=== PATIENT | male | born 1980 | race Caucasian/White ===

== ENCOUNTER 2017-10-09 03:23 | Emergency (ER) | payer BC ==
--- NOTE | 2017-10-09 03:42 | ER Document Report ---
ED General - General Chief Complaint: Breathing Difficulty Stated Complaint: BREATHING PROBLEM Time Seen by Provider: 10/09/17 03:28 Information source: Patient Notes: Patient is a 37-year-old male with a past medical history of cystic fibrosis who comes emergency department for chief complaint of cough with chest congestion and difficulty breathing for the past 4 days. Patient also states that prior to arrival he had an episode while he was walking to the bathroom where he felt very lightheaded and thought he was going to pass out, he sat on the couch and it subsided, his significant other had called EMS during this episode. He denies current lightheadedness. He denies chest pain or palpitations. Only current symptoms are cough and chest congestion with shortness of breath. He states he has had chills over the past couple of days. He takes azithromycin 3 times a week. He uses albuterol and used it tonight. He follows with [facility] Dr. Melissa Schaeffer. TRAVEL OUTSIDE OF THE [place] IN LAST 30 DAYS: No - Related Data Allergies/Adverse Reactions: No Known Allergies Allergy (Verified 10/09/17 03:37) Past Medical History - General Information source: Patient - Social History Smoking Status: Never Smoker Frequency of alcohol use: None Drug Abuse: None Lives with: Spouse/Significant other Family History: None Patient has suicidal ideation: No Patient has homicidal ideation: No Pulmonary Medical History: Reports: Hx Pneumonia, Other - cystic fibrosis Renal/ Medical History: Denies: Hx Peritoneal Dialysis - Immunizations Immunizations up to date: Yes Hx Diphtheria, Pertussis, Tetanus Vaccination: Yes Review of Systems - Review of Systems Constitutional: See HPI EENT: No symptoms reported Cardiovascular: No symptoms reported Respiratory: See HPI Gastrointestinal: No symptoms reported Genitourinary: No symptoms reported Male Genitourinary: No symptoms reported Musculoskeletal: No symptoms reported Skin: No symptoms reported Hematologic/Lymphatic: No symptoms reported Neurological/Psychological: No symptoms reported Physical Exam - Vital signs Vitals: Temp Pulse Resp BP Pulse Ox 98.5 F 117 H 24 H 121/69 96 10/09/17 03:29 10/09/17 03:29 10/09/17 03:29 10/09/17 03:29 10/09/17 03:29 Interpretation: Normal - General General appearance: Alert In distress: None - HEENT Head: Normocephalic, Atraumatic Eyes: Normal Pupils: PERRL - Respiratory Respiratory status: No respiratory distress, Tachypnea - Mild intermittent tachypnea. No: Respiratory distress Chest status: Nontender Breath sounds: Decreased air movement, Nonproductive cough, Other - A few coarse scattered rhonchi and wheezes, no rales - Cardiovascular Rhythm: Regular, Tachycardia Heart sounds: Normal auscultation, S1 appreciated, S2 appreciated Murmur: No - Abdominal Inspection: Normal Distension: No distension Bowel sounds: Normal Tenderness: Nontender Organomegaly: No organomegaly - Back Back: Normal, Nontender - Extremities General upper extremity: Normal inspection, Nontender, Normal color, Normal ROM , Normal temperature General lower extremity: Normal inspection, Nontender, Normal color, Normal ROM , Normal temperature, Normal weight bearing. No: Lynn's sign - Neurological Neuro grossly intact: Yes Cognition: Normal Orientation: AAOx4 Darin Coma Scale Eye Opening: Spontaneous Kenton Coma Scale Verbal: Oriented Kenton Coma Scale Motor: Obeys Commands Darin Coma Scale Total: 15 Speech: Normal Motor strength normal: LUE, RUE, LLE, RLE Sensory: Normal - Psychological Associated symptoms: Normal affect, Normal mood - Skin Skin Temperature: Warm Skin Moisture: Dry Skin Color: Normal Course - Re-evaluation Re-evalutation: Patient with mild tachypnea, tachycardia, a few scattered rhonchi and wheezes. Abnormal breath sounds resolved after DuoNeb's here and from EMS, Solu-Medrol given, giving IV fluids. Chest x-ray with no acute findings, CBC, chemistry generally unremarkable and at baseline, LFTs slightly elevated but comparable to prior. Urinalysis unremarkable. Venous blood gas with no concerning abnormalities. After 1.5 L of normal saline patient continues to be tachycardic in the 120s which is more than I would expect just from albuterol. Patient still complains of shortness of breath on 2 L nasal cannula. He states he has been sitting in bed for the past week. No personal history of blood clot although he does have family history of blood clots. Because of persistent tachycardia decision was made to perform CTA to rule out pulmonary emboli and further evaluate the patient. CTA showing mosaic groundglass opacity in the right upper lung, bronchiectasis, pulmonary fibrosis, but no PE. Patient ambulated briefly, his heart rate went up to almost 140s, he became very short of breath with tachypnea. Pulse oxygen went down to 94% but not below. Patient will require admission. Discussed with Dr. De Jesus. Recommends consultation with pulmonology for antibiotic choice and transfer to tertiary center. Discussed with Dr. Cai, however she is not available for accepting, she does recommend vancomycin, Zosyn, Levaquin doses based on patient's previous culture growth. Spoke with Dr. Rowley, Pulmonology. He will accept patient for transfer. 10/09/17 07:15 Patient is in full agreement with transfer plans. 10/09/17 07:30 Introduced at bedside to Jessica DE OLIVEIRA. - Vital Signs Vital signs: Temp Pulse Resp BP Pulse Ox 98.5 F 117 H 15 122/57 L 96 10/09/17 03:29 10/09/17 03:29 10/09/17 07:00 10/09/17 06:01 10/09/17 07:00 - Laboratory Result Diagrams: 10/09/17 04:09 10/09/17 04:09 Laboratory results interpreted by me: 10/09/17 10/09/17 10/09/17 04:09 04:09 04:09 Hgb 12.8 L Hct 37.8 L Lymphocytes % 6.6 L Monocytes % 13.2 H VBG pCO2 33.9 L Sodium 136.1 L AST 135 H ALT 195 H Alkaline Phosphatase 182 H Discharge - Discharge Clinical Impression: Cystic fibrosis, Difficulty breathing, Tachycardia Pneumonia Qualifiers: Pneumonia type: due to unspecified organism Laterality: right Lung location: upper lobe of lung Qualified Code(s): J18.1 - Lobar pneumonia, unspecified organism Condition: Stable Disposition: [facility]
[2017-10-09] MEDS ORDERED: NORMAL SALINE 1000 ML 500 ML IV ONE (03:54)
[2017-10-09] MEDS ORDERED: METHYLPREDNISOLONE INJ 125 MG/2 ML SDV IV ONE (03:54)
--- NOTE | 2017-10-09 04:08 | RADIOLOGY REPORT (SQ) ---
EXAM DESCRIPTION: CHEST SINGLE VIEW CLINICAL HISTORY: 37 years, Male, shortness of breath, cough, chills COMPARISON: None. FINDINGS: Normal lung volume, clear parenchyma, normal cardiac silhouette, and intact bony thorax. IMPRESSION: No acute cardiopulmonary findings.
[2017-10-09 04:18] LABS: ABSOLUTE EOSINOPHILS # (AUTO) 0.2 10^3/uL (0.0-0.6); ABSOLUTE LYMPHOCYTES (AUTO) 0.5 10^3/uL (0.5-4.7); ABSOLUTE NEUT (AUTO) 5.9 10^3/uL (1.7-8.2); BASOPHILS % (AUTO) 0.1 % (0-2); EOSINOPHILS % (AUTO) 3.1 % (0-6); HEMATOCRIT 37.8 % (37.9-51.0); HEMOGLOBIN 12.8 g/dL (13.5-17.0); LYMPHOCYTES % (AUTO) 6.6 % (13-45); MEAN CORPUSCULAR HEMOGLOBIN 29.2 pg (27.0-33.4); MEAN CORPUSCULAR HGB CONC 33.8 g/dL (32.0-36.0); MEAN CORPUSCULAR VOLUME 86 fl (80-97); MONOCYTES % (AUTO) 13.2 % (3-13); PLATELET COUNT 236 10^3/uL (150-450); RED BLOOD COUNT 4.37 10^6/uL (4.35-5.55); RED CELL DISTRIBUTION WIDTH 13.3 % (11.5-14.0); TOTAL CELLS COUNTED % (AUTO) 100 %; WHITE BLOOD COUNT 7.7 10^3/uL (4.0-10.5)
[2017-10-09 04:22] LABS: VENOUS BLOOD BASE EXCESS -2.8 mmol/L; VENOUS BLOOD PCO2 33.9 mmHg (35-63); VENOUS BLOOD PH 7.41 (7.30-7.42)
[2017-10-09 04:31] LABS: ALANINE AMINOTRANSFERASE 195 U/L (21-72); ALBUMIN 4.1 g/dL (3.5-5.0); ALKALINE PHOSPHATASE 182 U/L (38-126); ANION GAP 7 (5-19); ASPARTATE AMINO TRANSFERASE 135 U/L (17-59); BILIRUBIN,DIRECT 0.3 mg/dL (0.0-0.4); BILIRUBIN,TOTAL 0.7 mg/dL (0.2-1.3); BLOOD UREA NITROGEN 12 mg/dL (7-20); CALCIUM 9.2 mg/dL (8.4-10.2); CARBON DIOXIDE 24 mmol/L (22-30); CHLORIDE 105 mmol/L (98-107); GLUCOSE 93 mg/dL (75-110); POTASSIUM 4.3 mmol/L (3.6-5.0); SODIUM 136.1 mmol/L (137-145)
[2017-10-09] MEDS ORDERED: NORMAL SALINE 1000 ML 1,000 ML IV ONE (05:06)
[2017-10-09 05:58] LABS: APPEARANCE,URINE CLEAR; BILIRUBIN,URINE NEGATIVE (NEGATIVE); COLOR,URINE STRAW; GLUCOSE, URINE NEGATIVE (NEGATIVE); KETONES,URINE NEGATIVE (NEGATIVE); LEUKOCYTE ESTERASE,URINE NEGATIVE (NEGATIVE); NITRITE,URINE NEGATIVE (NEGATIVE); PROTEIN,URINE NEGATIVE (NEGATIVE); URINE SPECIFIC GRAVITY 1.005; UROBILINOGEN,URINE NEGATIVE mg/dL (<2.0)
--- NOTE | 2017-10-09 06:01 | RADIOLOGY REPORT (SQ) ---
EXAM DESCRIPTION: CTA CHEST CLINICAL HISTORY: 37 years Male, shortness of breath, tachycardia COMPARISON: None. TECHNIQUE: 76 mL Isovue 370 IV contrast. Multiplanar reformat. This exam was performed according to our departmental dose-optimization program, which includes automated exposure control, adjustment of the mA and/or kV according to patient size and/or use of iterative reconstruction technique. FINDINGS: No pulmonary embolus. No right ventricular strain. Mild pulmonary fibrosis includes moderate bronchiectasis bilaterally and small reticulonodular interstitial markings of the right middle and right upper lobes. Mosaic groundglass opacity includes the right upper lobe. 2.8 cm low-attenuation likely benign splenic cyst. Small cholelithiasis. Inferior neck, axillae, mediastinum, lymphatics, heart, vasculature, upper abdomen, and musculoskeleton appear otherwise unremarkable. IMPRESSION: 1. Moderate bilateral bronchiectasis, mild pulmonary fibrosis, and/or mild-moderate chronic interstitial lung disease. 2. No pulmonary embolus. 3. Small cholelithiasis.
[2017-10-09] MEDS ORDERED: IPRATROPIUM/ALBUTEROL 0.5-2.5 MG/3 ML AMPUL NEB ONE (06:31)
[2017-10-09] MEDS ORDERED: PIPERACILLIN/TAZOBACTAM 3.375 GM VIAL IV ONE (06:58)
[2017-10-09] MEDS ORDERED: VANCOMYCIN HCL INJ 1000 MG VIAL IV ONE (06:58)
[2017-10-09] MEDS ORDERED: LEVOFLOXACIN 750 MG/D5W RTU 750 MG/150 ML RTUPB IV ONE (06:58)
[2017-10-09 08:17] LABS: A TYPE INFLUENZA AG NEGATIVE (NEGATIVE); B INFLUENZA AG NEGATIVE (NEGATIVE)
[2017-10-09 09:19] VITALS: BP 124/71
--- NOTE | 2017-10-09 10:26 | EKG REPORT ---
SEVERITY:- OTHERWISE NORMAL ECG - SINUS TACHYCARDIA : Confirmed by: Danni Sparks 09-Oct-2017 10:25:26
== END 2017-10-09 10:05 | disposition short-term general hospital (02) ==
LOC: ER 03:23
DX: J18.1 Lobar pneumonia, unspecified organism (principal); E84.9 Cystic fibrosis, unspecified; R06.02 Shortness of breath; R00.0 Tachycardia, unspecified; R05 Cough; R09.89 Other specified symptoms and signs involving the circulatory and respiratory systems
CPT/HCPCS: 93005; 94640; 99285; 96361; 96375; 96365; 96367; 36415; 87040; 85025; 80053; 81001; 82803; 87804; 71045; 71275; 93010; J2930; J7030; J3370; J1956; J7620; J2543

== ENCOUNTER 2018-05-25 23:53 | Emergency (ER) | payer BC ==
[2018-05-26 01:16] LABS: HEMATOCRIT 42.7 % (37.9-51.0); HEMOGLOBIN 14.4 g/dL (13.5-17.0); MEAN CORPUSCULAR HEMOGLOBIN 29.4 pg (27.0-33.4); MEAN CORPUSCULAR HGB CONC 33.7 g/dL (32.0-36.0); MEAN CORPUSCULAR VOLUME 87 fl (80-97); PLATELET COUNT 442 10^3/uL (150-450); RED CELL DISTRIBUTION WIDTH 13.6 % (11.5-14.0); WHITE BLOOD COUNT 23.1 10^3/uL (4.0-10.5)
[2018-05-26 01:22] LABS: ALANINE AMINOTRANSFERASE 530 U/L (21-72); ALBUMIN 4.2 g/dL (3.5-5.0); ALKALINE PHOSPHATASE 174 U/L (38-126); ANION GAP 13 (5-19); ASPARTATE AMINO TRANSFERASE 215 U/L (17-59); BILIRUBIN,DIRECT 0.5 mg/dL (0.0-0.4); BILIRUBIN,TOTAL 0.7 mg/dL (0.2-1.3); BLOOD UREA NITROGEN 19 mg/dL (7-20); CALCIUM 9.5 mg/dL (8.4-10.2); CARBON DIOXIDE 21 mmol/L (22-30); CHLORIDE 100 mmol/L (98-107); GLUCOSE 98 mg/dL (75-110); POTASSIUM 4.8 mmol/L (3.6-5.0); SODIUM 134.4 mmol/L (137-145); TOTAL PROTEIN 7.9 g/dL (6.3-8.2)
--- NOTE | 2018-05-26 01:30 | ER Document Report ---
ED General - General Chief Complaint: Palpitations Stated Complaint: DIZZINESS Time Seen by Provider: 05/26/18 01:04 Mode of Arrival: Ambulatory Information source: Patient Notes: This is a 37-year-old man with a history of cystic fibrosis, hypertension who presents to the emergency room with increasing palpitations over the past 3 weeks. Patient has had outpatient echo by his primary care doctor and has an appointment with the reservations clerk on Wednesday. He presented because seem to be worse today. He does report cutting down on his caffeine intake (he used to drink a lot of Mountain Dew). He denies any significant alcohol intake. No known thyroid issues. TRAVEL OUTSIDE OF THE [place] IN LAST 30 DAYS: No - HPI Onset: Last week Onset/Duration: Gradual Quality of pain: No pain Severity: None Pain Level: Denies Associated symptoms: denies: Chest pain, Fever, Shortness of breath Exacerbated by: Denies Relieved by: Denies Similar symptoms previously: Yes Recently seen / treated by doctor: Yes - Related Data Allergies/Adverse Reactions: No Known Allergies Allergy (Verified 05/25/18 23:59) Past Medical History - General Information source: Patient - Social History Smoking Status: Never Smoker Cigarette use (# per day): No Chew tobacco use (# tins/day): No Frequency of alcohol use: None Drug Abuse: None Lives with: Family Family History: None Patient has suicidal ideation: No Patient has homicidal ideation: No - Past Medical History Cardiac Medical History: Reports: Hx Hypertension Pulmonary Medical History: Reports: Hx Pneumonia Renal/ Medical History: Denies: Hx Peritoneal Dialysis Surgical Hx: Negative - Immunizations Immunizations up to date: Yes Hx Diphtheria, Pertussis, Tetanus Vaccination: Yes Review of Systems - Review of Systems Constitutional: denies: Chills, Fever EENT: No symptoms reported Cardiovascular: Palpitations, Lightheaded. denies: Chest pain Respiratory: No symptoms reported Gastrointestinal: No symptoms reported Genitourinary: No symptoms reported Male Genitourinary: No symptoms reported Musculoskeletal: No symptoms reported Skin: No symptoms reported Hematologic/Lymphatic: No symptoms reported Neurological/Psychological: No symptoms reported Physical Exam - Vital signs Vitals: Temp Pulse Resp BP Pulse Ox 97.6 F 87 19 129/80 H 98 05/25/18 23:58 05/25/18 23:58 05/25/18 23:58 05/25/18 23:58 05/25/18 23:58 Notes: Physical exam: GENERAL: Oriented 3, no acute distress HEAD: Atraumatic, normocephalic. EYES: Pupils equal round and reactive to light, extraocular movements intact, sclera anicteric, conjunctiva are normal. ENT: TMs normal, nares patent, oropharynx clear without exudates. Moist mucous membranes. NECK: Normal range of motion, supple without obvious mass or JVD. LUNGS: Breath sounds clear to auscultation bilaterally and equal. No wheezes rales or rhonchi. HEART: Regular rate and rhythm without murmurs, rubs or gallops. ABDOMEN: Soft, normoactive bowel sounds. No tenderness to palpation. No guarding, no rebound. No masses appreciated. EXTREMITIES: Normal range of motion, no pitting or edema. No clubbing or cyanosis. NEUROLOGICAL: Cranial nerves II through XII grossly intact. Normal speech, moving all extremities. PSYCH: Normal mood, normal affect. SKIN: Warm, Dry, normal turgor, no rashes or lesions noted. Course - Re-evaluation Re-evalutation: 05/26/18 01:29 I had a long conversation with the patient while at the bedside, he was on the web ui developer and I witnessed single PVCs which the patient confirms is what he has been experiencing. There was no runs of V. tach. We will continue to observe him on the monitor while labs are being sent. 05/26/18 03:13 Note I had a long discussion with the patient regarding his lab results. He does report that he has had elevated liver function tests at [facility] and I can see he has had a gradual increase of his LFTs even here. It is felt by the team and [facility] that it is most likely related to his medications and they are following. Additionally the patient does have a leukocytosis with a white blood count of 23,000. He denies any fever and he denies any cough. He does state that he was placed recently on steroids by the cystic fibrosis team at [facility] and is still taking the prednisone. His lungs are clear at this time, he has had no increased cough, no chills, no sweats and he looks good. I will check a chest x-ray to make sure it is clear. - Vital Signs Vital signs: Temp Pulse Resp BP Pulse Ox 97.6 F 87 17 111/79 98 05/25/18 23:58 05/25/18 23:58 05/26/18 03:01 05/26/18 03:01 05/26/18 03:01 - Laboratory Result Diagrams: 05/26/18 00:40 05/26/18 00:40 Laboratory results interpreted by me: 05/26/18 05/26/18 00:40 00:40 WBC 23.1 H Metamyelocytes % 1 H Abs Neuts (Manual) 18.0 H Abs Monocytes (Manual) 1.6 H Sodium 134.4 L Carbon Dioxide 21 L Magnesium 2.6 H Direct Bilirubin 0.5 H AST 215 H ALT 530 H Alkaline Phosphatase 174 H - Diagnostic Test Radiology reviewed: Image reviewed - Chest x-ray shows no obvious infiltrates - EKG Interpretation by Me Rate: Normal Rhythm: NSR - EKG shows normal sinus rhythm with a ventricular rate of 77, no acute ST-T wave changes Discharge - Discharge Clinical Impression: Palpitations, Symptomatic PVCs Condition: Stable Disposition: HOME, SELF-CARE Additional Instructions: As we discussed, you do have elevated liver function tests on your blood test. It does appear that previous tests have shown that you had elevations as well. I am giving you a copy of these lab tests so that you can follow-up with your cystic fibrosis doctors at [facility]. The other finding and your labs is that your white count is elevated. Do not have any evidence of infections at this time. It is possible that the steroids that she was recently placed on can increase your white blood count. However I would follow-up with this as well with the doctors at [facility] as well as your primary care doctor. Chest x-ray showed no obvious infiltrates (there were chronic changes which is consistent with your diagnosis of cystic fibrosis. Regarding your palpitations. We did witness that you would have lone PVCs on the monitor during your evaluation. You did acknowledge that these were the symptoms that you were having so I think the palpitations are from premature ventricular contractions. I think following up with a reservations clerk on Wednesday is a good idea and that may be they can get you to wear a monitor longer term to rule out any abnormal heart rhythms. Your thyroid function tests were normal today. Continue current medicines Follow-up with your doctors at [facility]: I would let them know about the liver enzymes as well as the white count. Follow-up with your primary care doctor here in town: Bring a copy of today's labs with you when you go. Follow-up with the reservations clerk on Wednesday as planned Return to the emergency room for any fevers (temperature greater than 100.5), shortness of breath, productive cough or any concerns or getting worse.
[2018-05-26 01:37] LABS: ABSOLUTE LYMPHOCYTES# (MANUAL) 3.2 10^3/uL (0.5-4.7); ABSOLUTE MONOCYTES # (MANUAL) 1.6 10^3/uL (0.1-1.4); BASOPHILS % (MANUAL) 0 % (0-2); EOSINOPHILS % (MANUAL) 1 % (0-6); LYMPHOCYTES % (MANUAL) 14 % (13-45); METAMYELOCYTES % (MANUAL) 1 % (0); MONOCYTES % (MANUAL) 7 % (3-13); SEGMENTED NEUTROPHILS % (MAN) 77 % (42-78); TOTAL CELLS COUNTED 100
[2018-05-26 01:38] LABS: ANISOCYTOSIS SLIGHT; PLATELET CLUMPS PRESENT; PLATELET COMMENT ADEQUATE; PLATELET LARGE PRESENT; SCHISTOCYTES SLIGHT; TOXIC GRANULATION 1+
[2018-05-26 02:19] LABS: FREE T3 3.78 pg/mL (2.77-5.27)
[2018-05-26 02:21] LABS: FREE T4 (FREE THYROXINE) 1.02 ng/dL (0.78-2.19)
[2018-05-26 02:33] LABS: THYROID STIMULATING HORMONE 2.02 uIU/mL (0.47-4.68)
[2018-05-26 03:14] VITALS: BP 111/79
--- NOTE | 2018-05-26 08:26 | RADIOLOGY REPORT (SQ) ---
EXAM DESCRIPTION: X-ray two view chest. CLINICAL HISTORY: 37 years Male, cough COMPARISON: Prior chest x-ray performed on 10/09/2017 TECHNIQUE: PA and Lateral views of the chest performed on 05/26/2018 at 3:38 AM FINDINGS: The lungs are well-expanded. There is a patchy right perihilar opacity concerning for possible pneumonic infiltrate. This is new when compared to the prior study. The costophrenic sulci are clear. There is no evidence of a pneumothorax. The cardiac silhouette is normal in size. The mediastinal contours are normal. No acute osseous abnormalities are identified. No focal soft tissue abnormalities are identified. IMPRESSION: New patchy right perihilar opacity concerning for a possible pneumonic infiltrate.
--- NOTE | 2018-05-26 08:26 | EKG REPORT ---
SEVERITY:- NORMAL ECG - SINUS RHYTHM : Confirmed by: Rob Donis MD 26-May-2018 07:39:24
== END 2018-05-26 04:09 | disposition home or self-care (01) ==
LOC: ER 23:53
DX: I49.3 Ventricular premature depolarization (principal); R00.2 Palpitations; I10 Essential (primary) hypertension
CPT/HCPCS: 36415; 71046; 80053; 83735; 84439; 84443; 84481; 85025; 93005; 93010; 99284

== ENCOUNTER 2018-09-17 18:21 | Emergency (ER) | payer BC ==
--- NOTE | 2018-09-17 19:29 | ER Document Report ---
ED Medical Screen (RME) - General Chief Complaint: Epigastric Pain Stated Complaint: ABDOMINAL PAIN Time Seen by Provider: 09/17/18 19:16 Notes: Patient is a 38-year-old male with cystic fibrosis that presents to the emergency department for chief complaint of epigastric abdominal pain. Pain started yesterday, but worsened through today, denies prior history of issues with his pancreas despite having cystic fibrosis. ROS: Other than noted above, the 12 point review of systems was reviewed with the patient and were negative, all pertinent findings are included in the HPI. PHYSICAL EXAMINATION: Vital signs reviewed. GENERAL: Well-appearing, well-nourished and in no acute distress. HEAD: Atraumatic, normocephalic. EYES: Pupils equal round extraocular movements intact, conjunctiva are normal. ENT: Nares patent NECK: Normal range of motion CV: Heart regular rate and rhythm LUNGS: No respiratory distress Abdomen: Tenderness with palpation to the epigastric region of the abdomen. Musculoskeletal: Normal range of motion NEUROLOGICAL: Normal speech PSYCH: Normal mood, normal affect. MDM: Patient seen and examined for rapid initial assessment. Vital signs reviewed. A comprehensive ED assessment and evaluation of the patient, analysis of test results and completion of the medical decision making process will be conducted by additional ED providers. *Note is created using voice recognition software and may contain spelling, syntax or grammatical errors. TRAVEL OUTSIDE OF THE [place] IN LAST 30 DAYS: No - Related Data Allergies/Adverse Reactions: No Known Allergies Allergy (Verified 09/17/18 18:23) Past Medical History - Past Medical History Cardiac Medical History: Reports: Hx Hypertension Pulmonary Medical History: Reports: Hx Pneumonia Renal/ Medical History: Denies: Hx Peritoneal Dialysis - Immunizations Immunizations up to date: Yes Hx Diphtheria, Pertussis, Tetanus Vaccination: Yes Physical Exam - Vital signs Vitals: Temp Pulse Resp BP Pulse Ox 97.7 F 75 16 137/81 H 96 09/17/18 18:40 09/17/18 18:40 09/17/18 18:40 09/17/18 18:40 09/17/18 18:40 Course - Vital Signs Vital signs: Temp Pulse Resp BP Pulse Ox 97.7 F 75 16 137/81 H 96 09/17/18 18:40 09/17/18 18:40 09/17/18 18:40 09/17/18 18:40 09/17/18 18:40
[2018-09-17] MEDS ORDERED: HYDROMORPHONE HCL INJ/PF 2 MG/ML AMPULE IV ONE (19:30)
[2018-09-17] MEDS ORDERED: PANTOPRAZOLE SODIUM 40 MG VIAL IV ONE (19:30)
[2018-09-17] MEDS ORDERED: NORMAL SALINE 1000 ML 1,000 ML IV ONE (19:30)
[2018-09-17 20:31] LABS: ABSOLUTE EOSINOPHILS # (AUTO) 0.6 10^3/uL (0.0-0.6); ABSOLUTE LYMPHOCYTES (AUTO) 1.7 10^3/uL (0.5-4.7); ABSOLUTE MONOCYTES (AUTO) 0.7 10^3/uL (0.1-1.4); ABSOLUTE NEUT (AUTO) 7.2 10^3/uL (1.7-8.2); BASOPHILS % (AUTO) 0.3 % (0-2); EOSINOPHILS % (AUTO) 6.1 % (0-6); HEMATOCRIT 42.3 % (37.9-51.0); HEMOGLOBIN 14.6 g/dL (13.5-17.0); LYMPHOCYTES % (AUTO) 16.5 % (13-45); MEAN CORPUSCULAR HEMOGLOBIN 29.5 pg (27.0-33.4); MEAN CORPUSCULAR HGB CONC 34.5 g/dL (32.0-36.0); MEAN CORPUSCULAR VOLUME 86 fl (80-97); MONOCYTES % (AUTO) 6.8 % (3-13); PLATELET COUNT 383 10^3/uL (150-450); RED BLOOD COUNT 4.94 10^6/uL (4.35-5.55); RED CELL DISTRIBUTION WIDTH 13.1 % (11.5-14.0); SEGMENTED NEUTROPHILS % (AUTO) 70.3 % (42-78); TOTAL CELLS COUNTED % (AUTO) 100 %; WHITE BLOOD COUNT 10.2 10^3/uL (4.0-10.5)
--- NOTE | 2018-09-17 20:33 | EKG REPORT ---
SEVERITY:- NORMAL ECG - SINUS RHYTHM : Confirmed by: Danni Spakrs 17-Sep-2018 20:32:31
[2018-09-17 20:39] LABS: ALANINE AMINOTRANSFERASE 39 U/L (21-72); ALBUMIN 4.7 g/dL (3.5-5.0); ALKALINE PHOSPHATASE 134 U/L (38-126); ANION GAP 13 (5-19); APPEARANCE,URINE CLEAR; ASPARTATE AMINO TRANSFERASE 30 U/L (17-59); BILIRUBIN,DIRECT 0.2 mg/dL (0.0-0.4); BILIRUBIN,TOTAL 0.7 mg/dL (0.2-1.3); BILIRUBIN,URINE NEGATIVE (NEGATIVE); BLOOD UREA NITROGEN 16 mg/dL (7-20); CALCIUM 9.7 mg/dL (8.4-10.2); CARBON DIOXIDE 24 mmol/L (22-30); CHLORIDE 103 mmol/L (98-107); COLOR,URINE STRAW; GLUCOSE 81 mg/dL (75-110); GLUCOSE, URINE NEGATIVE (NEGATIVE); KETONES,URINE NEGATIVE (NEGATIVE); LEUKOCYTE ESTERASE,URINE NEGATIVE (NEGATIVE); LIPASE 820.2 U/L (23-300); NITRITE,URINE NEGATIVE (NEGATIVE); POTASSIUM 4.5 mmol/L (3.6-5.0); PROTEIN,URINE NEGATIVE (NEGATIVE); SODIUM 139.6 mmol/L (137-145); URINE SPECIFIC GRAVITY 1.005; UROBILINOGEN,URINE NEGATIVE mg/dL (<2.0)
[2018-09-17] MEDS ORDERED: MORPHINE SULFATE 10 MG/ML INJ IV PRN (22:42)
[2018-09-17] MEDS ORDERED: KETOROLAC TROMETHAMINE INJ/PF 30 MG/1 ML SDV IV ONE (22:42)
--- NOTE | 2018-09-17 23:30 | ER Document Report ---
ED General - General Chief Complaint: Epigastric Pain Stated Complaint: ABDOMINAL PAIN Time Seen by Provider: 09/17/18 19:16 Notes: Patient is a 38-year-old male with a past medical history of hypertension, cystic fibrosis, presents with 36 hours of intermittent epigastric abdominal pain that radiates into his mid back. Patient describes the pain is intermittent, stabbing, cramping, moderate to severe pain. Nothing seems to trigger the pain and it does go away on its own. Denies a history of similar pain in the past. He has had nausea but no vomiting. No fever or constitutional symptoms. Has not seen his primary care physician regarding today's concerns. Denies any alcohol consumption. No history of abdominal surgeries. TRAVEL OUTSIDE OF THE [place] IN LAST 30 DAYS: No - Related Data Allergies/Adverse Reactions: No Known Allergies Allergy (Verified 09/17/18 18:23) Past Medical History - General Information source: Patient - Social History Smoking Status: Never Smoker Frequency of alcohol use: None Drug Abuse: None Lives with: Spouse/Significant other Family History: Reviewed & Not Pertinent Patient has suicidal ideation: No Patient has homicidal ideation: No - Past Medical History Cardiac Medical History: Reports: Hx Hypertension Pulmonary Medical History: Reports: Hx Pneumonia Renal/ Medical History: Denies: Hx Peritoneal Dialysis - Immunizations Immunizations up to date: Yes Hx Diphtheria, Pertussis, Tetanus Vaccination: Yes Review of Systems - Review of Systems Notes: Constitutional: Negative for fever. HENT: Negative for sore throat. Eyes: Negative for visual changes. Cardiovascular: Negative for chest pain. Respiratory: Negative for shortness of breath. Gastrointestinal: Positive for epigastric abdominal pain and nausea Genitourinary: Negative for dysuria. Musculoskeletal: Negative for back pain. Skin: Negative for rash. Neurological: Negative for headaches, weakness or numbness. 10 point ROS negative except as marked above and in HPI. Physical Exam - Vital signs Vitals: Temp Pulse Resp BP Pulse Ox 97.7 F 75 16 137/81 H 96 09/17/18 18:40 09/17/18 18:40 09/17/18 18:40 09/17/18 18:40 09/17/18 18:40 Interpretation: Normal Notes: PHYSICAL EXAMINATION: GENERAL: Appears moderately uncomfortable but in no acute distress HEAD: Atraumatic, normocephalic. EYES: Pupils equal round and reactive to light, extraocular movements intact, sclera anicteric, conjunctiva are normal. ENT: nares patent, oropharynx clear without exudates. Moist mucous membranes. NECK: Normal range of motion, supple without lymphadenopathy LUNGS: Breath sounds clear to auscultation bilaterally and equal. No wheezes rales or rhonchi. HEART: Regular rate and rhythm without murmurs ABDOMEN: Soft, mild epigastric abdominal tenderness on palpation but no other areas of localized abdominal tenderness, normoactive bowel sounds. No guarding, no rebound. No masses appreciated. EXTREMITIES: Normal range of motion, no pitting or edema. No cyanosis. NEUROLOGICAL: No focal neurological deficits. Moves all extremities spon taneously and on command. PSYCH: Normal mood, normal affect. SKIN: Warm, Dry, normal turgor, no rashes or lesions noted. Course - Re-evaluation Re-evalutation: 09/17/18 22:42 Patient presents with clinical history and exam and labs to suggest acute, mild pancreatitis. Lipase is elevated to just under 900 today. Patient likely has pancreatitis related to having cystic fibrosis. Right upper quadrant ultrasound unremarkable. At time of arrival, patient's vitals are within normal limits, they are well-appearing and in no acute distress. The patient has tolerated oral intake without difficulty and has not had any vomiting with today's presentation. Pain was able to be controlled here in the emergency department with oral medications. Right upper quadrant ultrasound with evidence of cholelithiasis but no evidence of acute cholecystitis. Hafsa score is 0. Patient is an appropriate candidate for outpatient management of this acute episode of pancreatitis using oral pain medications, antiemetics, and recommendations for a clear liquid diet until pain has resolved. At this time will discharge with return precautions and follow-up recommendations. Verbal discharge instructions given a the bedside and opportunity for questions given. Medication warnings reviewed. Patient is in agreement with this plan and has verbalized understanding of return precautions and the need for primary care follow-up in the next 24-72 hours. - Vital Signs Vital signs: Temp Pulse Resp BP Pulse Ox 98.3 F 70 15 135/65 H 98 09/18/18 00:45 09/18/18 00:45 09/18/18 00:45 09/18/18 00:45 09/18/18 00:45 - Laboratory Result Diagrams: 09/17/18 19:59 09/17/18 19:59 Laboratory results interpreted by me: 09/17/18 09/17/18 19:59 19:59 Eosinophils % 6.1 H Creatinine 1.41 H Est GFR (Non-Af Amer) 56 L Alkaline Phosphatase 134 H Lipase 820.2 H - Diagnostic Test Radiology reviewed: Reports reviewed Discharge - Discharge Clinical Impression: Epigastric abdominal pain Pancreatitis Qualifiers: Chronicity: acute Pancreatitis type: unspecified pancreatitis type Acute pancreatitis complication: no infection or necrosis Qualified Code(s): K85.90 - Acute pancreatitis without necrosis or infection, unspecified Cholelithiasis Qualifiers: Cholelithiasis location: gallbladder Cholecystitis presence: without cholecystitis Biliary obstruction: without biliary obstruction Qualified Code(s): K80.20 - Calculus of gallbladder without cholecystitis without obstruction Condition: Fair Disposition: HOME, SELF-CARE Additional Instructions: You were seen today for pancreatitis. Your case today appears very mild and it is safe for you to go home today with medications for pain and nausea. Please drink plenty of fluids over the next several days and try to avoid food ingestion until your pain is resolved. Please return to the emergency dep artment immediately if you develop persistent vomiting that prohibits you from taking your medications or keeping fluids down, you develop a fever of greater than 101F, you have worsening pain, you become confused, you become short of breath, or have any other symptoms that are worrisome to you. Please follow-up with your primary care doctor in the next 24-48 hours. For your pain: Take ibuprofen 600 mg and acetaminophen 1000 mg every 6 hours together as needed for pain. If this does not control your pain you may take 15 mg of oral morphine every 4 hours as needed. Please be very careful about using the oral morphine and only use this for severe pain. Prescriptions: Morphine Sulfate [Morphine Ir 15 mg Tablet] 15 mg PO TID PRN #8 tablet PRN Reason:
--- NOTE | 2018-09-17 23:40 | RADIOLOGY REPORT (SQ) ---
EXAM DESCRIPTION: US ABDOMEN LIMITED COMPLETED DATE/TME: 09/17/2018 21:33 CLINICAL HISTORY: 38 years, Male, upper abdominal pain COMPARISON: None. TECHNIQUE: Limited right upper quadrant ultrasound LIMITATIONS: None. FINDINGS: The liver is heterogeneous in echotexture likely reflecting fatty infiltrative change. Correlate with liver function. Mobile, shadowing stones throughout the gallbladder lumen. No gallbladder wall thickening or pericholecystic fluid. CBD measures 3 mm. The visualized pancreas, abdominal aorta, inferior vena cava, right kidney are unremarkable. No ascites IMPRESSION: Heterogeneous echotexture to the liver likely reflecting fatty infiltrative change. Correlate with liver function. Cholelithiasis. No sonographic evidence for cholecystitis copyright 2010 [employer]- All Rights Reserved
[2018-09-17] MEDS ORDERED: ONDANSETRON ODT 4 MG TAB (6 TAB/ER DISP) PO PRN (23:47)
[2018-09-17] MEDS ORDERED: HYDROCODONE/ACETAMINOPHEN 5-325 MG (6 TAB/ER DISP) PO PRN (23:47)
[2018-09-18 01:21] VITALS: BP 135/65
== END 2018-09-18 00:45 | disposition home or self-care (01) ==
LOC: ER 18:21
DX: K85.90 Acute pancreatitis without necrosis or infection, unspecified (principal); K80.20 Calculus of gallbladder without cholecystitis without obstruction; R10.13 Epigastric pain; M54.9 Dorsalgia, unspecified; R11.0 Nausea; I10 Essential (primary) hypertension
CPT/HCPCS: 93005; 99285; 96361; 96374; 96375; 36415; 83690; 85025; 80053; 81001; 76705; 93010; J1885; J2270; J1170; J7030